=== PATIENT | male | born 1970 | race Caucasian/White ===

== ENCOUNTER 2025-05-20 17:26 | Emergency (ER) | payer BC, SELFPAY ==
--- OUTSIDE RECORDS SUMMARY | 2025-05-20 17:27 | XMS_ITS | Clinical Summary ---
Author Organization [facility] Address [address] [place] [id number] Care Team Providers Care Referral Management Liaison Name Role Phone Pcp, No Primary Care Provider Unavailabl e Allergies No known active allergies Medications acetaminophen- codeine, 300-30 mg, (TYLENOL #3) 300-30 mg tabletIndicati ons:Neck injury Take 1-2 tablets by mouth every 4 hours if needed for Pain. Max acetaminophen dose: 4000mg in 24 hrs. 40 tablet 0 3 Active gentamicin (GARAMYCIN) 0.3 % (3 mg/g) ophthalmic ointmentIndica tions:Stye Place 1 Strip into left eye 3 times daily. 1 Tube 0 3 Active Active Problems No known active problems Social History Tobacco Use Types Packs/Day Years Used Date Smoking Tobacco: Never Smokeless Tobacco: Current Snuff Tobacco Cessation:Counseling Given: Yes Comments:once in a while Alcohol Use Standard Drinks/Week Comments Yes 0 (1 standard drink = 0.6 oz pur e alcohol) Sex and Gender Information Value Date Recorded Sex Assigned at Not on file Legal Sex Male 5:42 AM [employer] Gender Identity Not on file Sexual Orientation Not on file Obstetrics History Last Filed Vital Signs Vital Sign Reading Time Taken Comments Blood Pressure 116/73 08/09/2013 4:23 PM [employer] Pulse 84 08/09/2013 4:23 PM [employer] Temperature 36.7 C (98.1 F) 08/09/2013 4:23 PM [employer] Respiratory Rate - - Oxygen Saturation 96% 08/09/2013 4:23 PM [employer] Inhaled Oxygen Concentration - - Weight 69.4 kg (153 lb) 08/09/2013 4:23 PM [employer] Height 165.1 cm (5' 5) 09/27/2007 2:08 PM [employer] Body Mass Index 25.46 09/27/2007 2:08 PM [employer] Plan of Treatment Health Maintenance Due Date Last Done Comments Tetanus booster 1981 Depression screening for age 12+ 1982 HIV for age 15-65 1985 BMI (ht and wt on same day) for age 18+ 1988 Hepatitis C screening for age 18-79 1988 Hepatitis B series for 19+ (1 of 3 - 19+ 3-dose series ) 1989 Colonoscopy through age 75 2015 Lipids for age 45-75 2015 Pneumococcal series for age 50+ (1 of 1 - PCV) 020 Zoster (shingles) series for age 50+ (1 of 2) 03/03/20 20 COVID-19 vaccine series ( - 2023- season) Influenza Vaccine (#1) 2025 RSV vaccine for adults or pr egnancy (1 - 1-dose 75+ series) 2045 Insurance [facility] Care Teams Referral Management Liaison Relationship Specialty Start Date End Date Pcp, No . PCP - General 09/17/24
[2025-05-20 17:34] VITALS: BP 135/88; PULSE 66; RESP 16; TEMP 36.2; O2SAT 96; BMI 26.6
--- NOTE | 2025-05-20 19:20 | ED.GENADULT ---
HPI - General Adult General Chief complaint: Headache/Migraine Stated complaint: headache, blurry vision Time Seen by Provider: 05/20/25 18:47 History of Present Illness HPI narrative: at 10:30 am was getting blurred vision and headache. got something to eat. vision got a little better but headache moved from front of head to back of head. also states lately when driving home from work gets cramp in L chest, last time it did that was monday night. wass raining and left work, took 2 ibuprofen and slept. now only has mild headache. 55-year-old man presenting to the emergency department with concern of altered vision. 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 Subsequently got blurry vision like he is looking through some old wavy glass more predominant in the left eye or visual field and then on the right in the lower half of the visual field seemed to be moving otherwise where the left side visual field was more static. He thought maybe that he needed something to eat. Subsequently did that. Had developed also headache around that time in the forehead which moved to the back of the head then later to the front again. He does not get headaches. This is atypical. This visual changes without actual loss of vision continued for about 3 hours. Was not discoordinated. He still feels like generally he is looking through a little bit of a haziness more noticeable in the left eye. Been some years since he has had an eye exam. He did take some ibuprofen and rested. With regard to headache he does not feel really needs treatment anymore. Very mild. Otherwise more recently he has been experiencing a cramping intermittently in his left chest. He describes his muscle tightening. He is not sure what the etiology is this is. This can occur intermittently at rest. He does recall when he was much younger did experience a concussion with some waviness of vision similar to this today. No recent head injury. Mother apparently did have early CVA and had hydrocephalus. Details unclear. Related Data Home Medications ?Medication ?Instructions ?Recorded ?Confirmed No Known Home Medications 05/20/25 05/20/25 Allergies Allergy/AdvReac Type Severity Reaction Status Date / Time No Known Drug Allergies Allergy Verified 05/20/25 20:49 Review of Systems Status of ROS: Reports: 6 or more systems reviewed and unremarkable except as noted in History and below [facility] Social History Smoking Status: Never smoker Do you use any of these nicotine containing products: Smokeless Tobacco How often do you have a drink containing alcohol: never AUDIT-C Alcohol total score: 0 Non-prescribed substance use: denies use Exam Narrative: Exam Narrative: Pleasant. Of good energy. Head is atraumatic. Eyes are slightly injected. Pupils are 3 mm and equal. Funduscopic exam is unremarkable. Visual vázquez appear full. Pupils are appropriately reactive to light and accommodation. Extraocular movements are full and fluid without nystagmus. Neck is supple nontender. No supraclavicular crepitus. Strong equal carotid upstroke. Lungs are clear. Heart in regular rate and rhythm without murmur rub or gallop. Is moving all extremities without difficulty. Cranial nerves 2-12 are intact. Normal point to point. No discoordination demonstrated. Const: Vital Signs, click to edit/add: Vital Signs - 24 hr 05/20/25 17:34 05/20/25 20:52 Temperature 97.2 F L 98.6 F Pulse Rate [Pulse Oximeter] 66 52 L Respiratory Rate 16 18 Blood Pressure [Ri ght Upper Arm] 135/88 128/88 Pulse Oximetry 96 96 Oxygen Delivery Me thod Room Air Room Air Documenting provider has reviewed patient's vital signs: yes Course Vital Signs Vital signs: Initial Vital Signs Temperature 97.2 F L 05/20/25 17:34 Temperature Source Temporal Artery Scan 05/20/25 17:34 Pulse Rate 66 05/20/25 17:34 Respiratory Rate 16 05/20/25 17:34 Blood Pressure 135/88 05/20/25 17:34 Blood Pressure Mean 103 05/20/25 17:34 Blood Pressure Position Sitting 05/20/25 17:34 Pulse Oximetry 96 05/20/25 17:34 Oxygen Delivery Method Room Air 05/20/25 17:34 Vital Signs Temperature 97.2 F L 05/20/25 17:34 Pulse Rate 66 05/20/25 17:34 Respiratory Rate 16 05/20/25 17:34 Blood Pressure 135/88 05/20/25 17:34 Pulse Oximetry 96 05/20/25 17:34 Oxygen Delivery Method Room Air 05/20/25 17:34 Temperature 98.6 F 05/20/25 20:52 Pulse Rate 52 L 05/20/25 20:52 Respiratory Rate 18 05/20/25 20:52 Blood Pressure 128/88 05/20/25 20:52 Pulse Oximetry 96 05/20/25 20:52 Oxygen Delivery Method Room Air 05/20/25 20:52 Medications Administered Medications: Discontinued Medications Generic Name Dose Route Start Last Admin Trade Name Natalia PRN Reason Stop Dose Admin Sodium Chloride 500 mls @ 1,000 mls/hr 05/20/25 20:40 05/20/25 22:35 0.9 % Sodium Chloride 500 Ml IV 05/20/25 21:09 Infused .Q30M ONE Infusion Medical Decision Making MDM Narrative Medical decision making narrative: Atypical for him to have a headache. Certainly might have been a CVA of some sort. Seems migrainous as well. Does not seem to be primarily visual/in the orbits. I did discuss this case with [facility]. Would suggest more of an atypical migraine but would recommend imaging for further reassurance which might also include MRI but initiating with CT head and neck with vascular studies. EKG independently reviewed by me shows a sinus bradycardia at a rate of 48. No ischemic changes otherwise evident. Will be checking basic labs. Labs are reassuring. There are no further events during time in the emergency department. No evidence of ischemic injury or arrhythmia to his heart. These appear to be described more as fasciculations. CT imaging non contrasted head independently reviewed by me looks to show some asymmetry to the 4th ventricle with the right side enlarged relative to the left. Radiology preliminary over-read vascular studies head and neck, stroke protocol are without significant occlusion. 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 Slight asymmetric dilatation of the right lateral ventricle. Symptoms including visual symptoms on reassessment of Mr. Azevedo have completely resolved. Discussed findings of imaging with [facility]. They also reviewed images. Recommending neuro surgical non emergent follow-up. Otherwise can proceed with MRI of brain as outpatient. Will try to arrange this. Easily ambulatory from the emergency department See patient discharge plan for further discussion Your workup here today was overall reassuring. 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 Recommendations are for non emergent neurosurgical follow-up. Your healthcare provider can help you with this referral. I am relieved that you are feeling better. Given the unusual symptoms you presented with today however, [facility] would like you to have an MRI of your brain. I have left an order with our radiology department and you should anticipate a call from them. Hopefully we can get this done for you within the next few days. If your symptoms recur though and certainly if they are more intense or associated with new and focal weakness or actual loss of vision, be seen more emergently. Lab Data Lab results reviewed: Yes I reviewed the patient's lab results Labs: Lab Results 05/20/25 Range/Units 20:01 Hgb 15.3 (13.5-17.5) gm/dL Sodium 138 (135-149) mmol/L Potassium 4.2 (3.6-5.1) mmol/L Chloride 104 (96-114) mmol/L Carbon Dioxide 25 (20-32) mmol/L Anion Gap 9 (7-15) mEq/L BUN 17 (7-30) mg/dL Creatinine 0.8 (0.5-1.5) mg/dL Estimated Creat Clear 90.76 Estimated GFR 105 ml/min Glucose 98 (60-115) mg/dL Calcium 9.3 (8.4-10.6) mg/dL Troponin I < 0.01 (0.01-0.04) ng/mL POC Troponin I 0.00 L (0.01-0.04) ng/ml Discharge Plan Discharge Clinical Impression: Atypical migraine, Alteration in vision, Atypical chest pain, Fasciculations of muscle Patient Disposition: Home w/ Parent or Adult Condition: Improved Additional Instructions: Your workup here today was overall reassuring. 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 Recommendations are for non emergent neurosurgical follow-up. Your healthcare provider can help you with this referral. I am relieved that you are feeling better. Given the unusual symptoms you presented with today however, [facility] Neuro would like you to have an MRI of your brain. I have left an order with our radiology department and you should anticipate a call from them. Hopefully we can get this done for you within the next few days. If your symptoms recur though and certainly if they are more intense or associated with new and focal weakness or actual loss of vision, be seen more emergently. Prescriptions: No Action No Known Home Medications Follow Up/Referrals: Trudy Mesa PA-C [Primary Care Provider, Family Practice] Stand Alone Forms: [employer] Electronic Healthcare Info Instructions
--- NOTE | 2025-05-20 20:16 | CT_ITS ---
[facility] Patient ID:?[id number] Site Patient ID:?[id number]. Site :?1970 Study:?CT-Head WITHOUT-05/20/2025 8:47:55 PM Ordering Physician:Silvano Alvarado Final Report: Indication: Visual change. Headache. Technique: CT of the brain was performed without intravenous contrast. Comparison: None relevant available at this institution. Findings: No acute blurring of the lama-white differentiation. There is no intracranial hemorrhage. Nonspecific asymmetric prominence of the right lateral ventricle. There is a hyperdensity, measuring 3 mm, noted in the region of the foramen of Monro. There is no intracranial mass, mass effect or midline shift identified. No depressed calvarial fracture. Moderate paranasal sinus mucosal disease. Impression: 1. 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 Slight asymmetric dilatation of the right lateral ventricle. 2. Recommend neurosurgical consultation as colloid cysts may predispose for obstructive hydrocephalus and be a source for headaches. Please note that all CT scans at this facility use dose modulation, iterative reconstruction, and/or weight-based dosing when appropriate to reduce radiation dose to as low as reasonably achievable. Dictated by Luis Kerr MD @ 05/20/2025 9:08:52 PM Signed by:?Luis Kerr MD @05/20/2025 9:08:52 PM (Electronic Signature)
--- NOTE | 2025-05-20 20:16 | CT_ITS ---
Patient: [facility] Facility:?[facility] Patient ID:?[id number] Site Patient ID:?[id number]. Site :?1970 Study:?CT-Head Angio 95CC ISOVUE 370-05/20/2025 8:48:12 PM Ordering Physician:Silvano Alvarado Final Report: DATE: 05/20/2025 CLINICAL HISTORY: Patient with visual changes and headache. TECHNIQUE: Standard helical CT image acquisition through the head and neck was performed after intravenous contrast bolus enhancement. 2D and 3D MIP images for post- processing were performed and interpreted on an independent workstation and 3D images were permanently archived. COMPARISON: CT same day. FINDINGS: The origins of the great vessels from the aortic arch are patent. The origin of the right vertebral artery is patent. The origin of the left vertebral artery is patent. The common carotid arteries are patent There is no stenosis at the origin of the right internal carotid artery. There is no stenosis at the origin of the left internal carotid artery. The rest of the cervical segments of the internal carotid arteries are patent up to their intracranial segments. The intracranial segments of the internal carotid arteries are patent. The vertebral arteries are codominant. The cervical segments of the vertebral arteries are patent. The intracranial segments of the vertebral arteries are patent. The middle cerebral arteries are normal without aneurysm or proximal occlusion identified. The anterior cerebral arteries are normal without aneurysm or proximal occlusion identified. The anterior communicating artery is well visualized and appears normal. The basilar artery is normal without aneurysm or occlusion. The posterior cerebral arteries are normal without aneurysm or proximal occlusion. There is normal opacification of major intracranial venous structures. The visualized lung apices are unremarkable The thyroid gland is unremarkable. The soft tissues of the neck are unremarkable. There are degenerative changes in the cervical spine. IMPRESSION: Normal CT angiogram of the head and neck. Please note that all CT scans at this facility use dose modulation, iterative reconstruction, and/or weight-based dosing when appropriate to reduce radiation dose to as low as reasonably achievable. Dictated by Rajwinder Rodriguez MD @ 05/20/2025 9:57:02 PM Signed by:?Rajwinder Rodriguez MD @05/20/2025 9:57:02 PM (Electronic Signature)
--- NOTE | 2025-05-20 20:16 | CT_ITS ---
Patient: [facility] Facility:?[facility] Patient ID:?[id number] Site Patient ID:?[id number] Site :?1970 Study:?CT-Neck Angio Angio 95CC ISOVUE 370-05/20/2025 8:48:51 PM Ordering Physician:Silvano Alvarado Final Report: DATE: 05/20/2025 CLINICAL HISTORY: Patient with visual changes and headache. TECHNIQUE: Standard helical CT image acquisition through the head and neck was performed after intravenous contrast bolus enhancement. 2D and 3D MIP images for post- processing were performed and interpreted on an independent workstation and 3D images were permanently archived. COMPARISON: CT same day. FINDINGS: The origins of the great vessels from the aortic arch are patent. The origin of the right vertebral artery is patent. The origin of the left vertebral artery is patent. The common carotid arteries are patent There is no stenosis at the origin of the right internal carotid artery. There is no stenosis at the origin of the left internal carotid artery. The rest of the cervical segments of the internal carotid arteries are patent up to their intracranial segments. The intracranial segments of the internal carotid arteries are patent. The vertebral arteries are codominant. The cervical segments of the vertebral arteries are patent. The intracranial segments of the vertebral arteries are patent. The middle cerebral arteries are normal without aneurysm or proximal occlusion identified. The anterior cerebral arteries are normal without aneurysm or proximal occlusion identified. The anterior communicating artery is well visualized and appears normal. The basilar artery is normal without aneurysm or occlusion. The posterior cerebral arteries are normal without aneurysm or proximal occlusion. There is normal opacification of major intracranial venous structures. The visualized lung apices are unremarkable The thyroid gland is unremarkable. The soft tissues of the neck are unremarkable. There are degenerative changes in the cervical spine. IMPRESSION: Normal CT angiogram of the head and neck. Please note that all CT scans at this facility use dose modulation, iterative reconstruction, and/or weight-based dosing when appropriate to reduce radiation dose to as low as reasonably achievable. Dictated by Rajwinder Rodriguez MD @ 05/20/2025 9:57:30 PM Signed by:?Rajwinder Rodriguez MD @05/20/2025 9:57:30 PM (Electronic Signature)
[2025-05-20 20:30] LABS: Hemoglobin* 15.3 gm/dL (13.5-17.5)
[2025-05-20 20:36] LABS: Troponin, Point-of-Care* 0.00 ng/ml (0.01-0.04)
[2025-05-20 20:48] LABS: Chloride* 104 mmol/L (96-114); Potassium* 4.2 mmol/L (3.6-5.1); Sodium* 138 mmol/L (135-149)
[2025-05-20] MEDS: 0.9 % SODIUM CHLORIDE 500 ML 500 ML 1000 ML IV (20:49)
[2025-05-20 20:51] LABS: Anion Gap 9 mEq/L (7-15); Blood Urea Nitrogen* 17 mg/dL (7-30); Carbon Dioxide* 25 mmol/L (20-32); Creatinine* 0.8 mg/dL (0.5-1.5); Est. Creatinine Clearance* 90.76; Estimated Glomerular Filt Rate 105 ml/min
[2025-05-20 20:52] VITALS: BP 128/88; PULSE 52; RESP 18; TEMP 37; O2SAT 96
[2025-05-20 20:52] LABS: Calcium* 9.3 mg/dL (8.4-10.6); Glucose* 98 mg/dL (60-115)
== END 2025-05-20 22:42 | disposition home or self-care (01) ==
PROVIDERS: Emergency Provider Family Medicine; PCP Physician Assistant Medical
DX: G43.909 Migraine, unspecified, not intractable, without status migrainosus (principal); H53.8 Other visual disturbances; R07.9 Chest pain, unspecified; R25.3 Fasciculation
CPT/HCPCS: 36415; 70450; 70496; 70498; 80048; 84484; 85018; 93005; 99284; 99285; J7030; Q9967

== ENCOUNTER 2025-05-23 14:21 | Outpatient (CLI) | payer BC, SELFPAY | END 2025-05-23 14:22 | disposition home or self-care (01) | PROVIDERS: PCP Physician Assistant Medical; Visit Provider Physician Assistant Medical | DX: R07.9 Chest pain, unspecified (principal); Z12.5 Encounter for screening for malignant neoplasm of prostate; Z13.6 Encounter for screening for cardiovascular disorders | CPT/HCPCS: 80061; 84443; G0103 ==

== ENCOUNTER 2025-05-27 18:46 | Outpatient (CLI) | payer BC, SELFPAY ==
--- NOTE | 2025-05-27 19:00 | CRLHL7_ITS ---
For Patients: As a result of the Century Cures Act, medical imaging exams and procedure reports are released immediately into your electronic medical record. You may view this report before your referring provider. If you have questions, please contact your health care provider. Indication: Atypical migraine Technique: Noncontrast sagittal T1, axial FLAIR, T2, diffusion, SWI weighted sequences are provided. No comparisons. Findings: The ventricles, sulci and gyri are normal size, shape and contour for age. The midline structures are centrally located with no evidence of shift. There are no suspicious intra or extra-axial fluid collections. No region of restricted diffusion. Expected flow voids in the cavernous carotids and basilar artery. Tiny focus of susceptibility involving the inferior left centrum semiovale that may represent a tiny region of chronic micro hemorrhage. Minimal scattered foci of increased T2 signal within the supratentorial white matter that are non-specific. Complete opacification of the maxillary sinuses due to underlying mucous retention cysts or polyps. Impression: 1. No radiographic evidence of acute intracranial abnormalities. 2. Minimal scattered supratentorial white matter change that is non-specific. Differential considerations include changes related to diabetes, hypertension, collagen vascular disease or migranous headaches. 3. Punctate focus of susceptibility in the inferior left centrum semiovale that may represent a tiny region of chronic microhemorrhage. 4. Severe chronic inflammatory changes of the maxillary sinuses. Dictated by Arpit Cooper MD @ 05/27/2025 8:22:13 PM (Electronically Signed)
== END 2025-05-27 18:47 | disposition home or self-care (01) ==
LOC: MRI 18:46
PROVIDERS: PCP Physician Assistant Medical; Visit Provider Family Medicine
DX: G43.009 Migraine without aura, not intractable, without status migrainosus (principal); J32.0 Chronic maxillary sinusitis
CPT/HCPCS: 70551

== ENCOUNTER 2025-06-10 12:44 | Outpatient (CLI) | payer BC, SELFPAY ==
[2025-06-10 13:34] VITALS: BP 138/72; PULSE 86; RESP 22
--- NOTE | 2025-06-10 15:11 | W.PM.STED ---
Stress Test Note Date Date Seen: 06/10/25 Date of test: 06/10/25 Providers Primary care provider: Trudy Mesa Stress test physician: Samira Oneal Stress Test Note Stress test ordered: Stress Echo Indication for test: Atypical chest symptoms at night Stress test medicine: None Results discussion: Resting EKG: Sinus bradycardia, 54 beats per minute. Possible PVC versus artifact at beginning of the EKG. Nonspecific ST and T-wave changes noted, V1, V4, V5. Resting blood pressure: 122/80 Stress test: Patient is consented on ordered stress test of exercise treadmill stress echo. Standard Wesley protocol was followed, patient agreed to proceed. Patient was able to exercise to 10 minutes 2nd, terminating due to reaching exercise capacity and target heart rate. This was equivalent to 11.7 Mets of activity. A maximum heart rate of 154 beats per minute was achieved which was 110% of a calculated target heart rate of 140. He had a rate pressure product of 29,948. Patient had no arrhythmia, saw 1 solitary PVC. He did have flipped T-waves that were more pronounced in recovery V3 through V5 but no chest symptoms with this. He did not meet any diagnostic criteria for ST segment changes with this. This is nonspecific finding but given the leads were contiguous in V3 through V5, could suggest some underlying ischemia. Note the pre them echo findings are negative but need to await Cardiology over-read. Again, patient had no symptoms. Impression: Subjectively negative, objectively non diagnostic for ischemia but concerning changes in leads V3 through V5: Patient discharged home in stable condition. Need to await echo images to couple this for a full formal diagnostic. If the echo images are negative for any ischemia, EKG is likely false-positive. Follow up suggested: Patient will await formal results from primary provider once cardiology has red echo images.
== END 2025-06-10 13:41 | disposition home or self-care (01) ==
LOC: STRESS 12:45
PROVIDERS: PCP Physician Assistant Medical; Visit Provider Physician Assistant Medical
DX: R07.9 Chest pain, unspecified (principal)
CPT/HCPCS: 93016; 93325; 93351